=== PATIENT | female | born 1965 | race African-American/Black ===

== ENCOUNTER 2019-01-15 17:01 | Observation (INO) | payer OTHER, SELFPAY ==
[~2019-01-15 17:01] MED LIST: ISOVUE-370 76%-LOCM 1 ML ONE
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
[2019-01-15 17:51] LABS: #Basophils 0.1 thou/uL (0.0-0.2); #Eosinphils 0.1 thou/uL (0.0-0.7); #Lymphocytes 1.7 thou/uL (1.20-3.40); #Monocytes 0.3 thou/uL (0.11-0.59); %Basophils 1.4 % (0.0-1.0); %Eosinophils 1.8 % (0.0-10.0); %Lymphocytes 23.2 % (21.0-51.0); %Monocytes 4.6 % (0.0-10.0); Hemoglobin 8.6 g/dL (12.0-16.0); Mean Corpuscular HGB CONC 32.3 g/dL (32.0-36.0); Mean Corpuscular Volume 89.7 fL (78.0-98.0); Mean Platelet Volume 7.3 fL (7.4-10.4); Platelet Count 158 thou/uL (130-400); RBC Distribution Width 12.2 % (11.5-14.5); Red Blood Cell (RBC) Count 2.96 mill/uL (4.20-5.40); White Blood Cell (WBC) Count 7.2 thou/uL (4.8-10.8)
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
[2019-01-15 18:13] LABS: ALT (SGPT) 23 U/L (8-55); AST (SGOT) 45 U/L (5-34); Albumin 2.9 g/dL (3.5-5.0); Alkaline Phosphatase 27 U/L (40-150); Anion Gap 9 mmol/L (10-20); BUN (Urea Nitrogen) 10 mg/dL (9.8-20.1); Bilirubin, Total 0.2 mg/dL (0.2-1.2); Calc. Creatinine Clearance 0 mL/min (70-130); Carbon Dioxide 23 mmol/L (22-29); Chloride 107 mmol/L (98-107); Estimated GFR-MDRD 78; Globulin 1.8 g/dL (2.4-3.5); Glucose 179 mg/dL (70-105); Protein, Total 4.7 g/dL (6.0-8.3); Sodium 136 mmol/L (136-145)
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
[2019-01-15 18:15] LABS: Potassium 2.9 mmol/L (3.5-5.1)
[2019-01-15 19:16] LABS: Lactic Acid 1.7 mmol/L (0.5-2.2)
[2019-01-15] MEDS ORDERED: Dextrose 5% in Water 1,000 ML IV PRN (19:56)
[2019-01-15] MEDS ORDERED: Morphine 2 MG/ML SYRINGE SLOW IVP PRN (19:56)
[2019-01-15] MEDS ORDERED: Promethazine HCl 25 MG/ML VIAL IM PRN (19:56)
[2019-01-15] MEDS ORDERED: Dextrose 50% Abboject 50 ML SYRINGE SLOW IVP PRN (19:56)
[2019-01-15] MEDS ORDERED: hydrALAZINE 20 MG/ML VIAL SLOW IVP PRN (19:56)
[2019-01-15] MEDS ORDERED: Cyclobenzaprine 10 MG TAB PO PRN (20:01)
[2019-01-15] MEDS ORDERED: traMADol HCl 50 MG TAB PO PRN ×2 (20:01)
[2019-01-15] MEDS ORDERED: Ibuprofen 800 MG TAB PO SCH (20:15)
[2019-01-15] MEDS: Sodium Chloride 0.9% 1,000 ML IV SCH (21:09)
[2019-01-15] MEDS: Ondansetron PF 4 MG/2 ML Vial IVP PRN (21:09)
[2019-01-15] MEDS: Potassium Chloride 20 MEQ/100 ML PREMIX BAG IVPB SCH (21:10)
[2019-01-15] MEDS: Ibuprofen 800 MG TAB PO SCH (21:10)
[2019-01-15] MEDS: Famotidine 20 MG TAB PO SCH (21:10)
[2019-01-15 21:52] VITALS: BMI 20.9
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
[2019-01-15] MEDS: Acetaminophen 1,000 MG in Premix Bag 1 BAG IVPB SCH (23:00)
[2019-01-16] MEDS: Potassium Chloride 20 MEQ/100 ML PREMIX BAG IVPB SCH
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
[2019-01-16 05:28] LABS: #Monocytes 0.5 thou/uL (0.11-0.59); #Neutrophils 6.8 thou/uL (1.40-6.50); %Basophils 0.1 % (0.0-1.0); %Lymphocytes 12.3 % (21.0-51.0); %Monocytes 5.9 % (0.0-10.0); %Neutrophils 81.7 % (42.0-75.0); Hemoglobin 9.3 g/dL (12.0-16.0); Mean Corpuscular HGB CONC 32.7 g/dL (32.0-36.0); Mean Corpuscular Hemoglobin 29.7 pg (27.0-31.0); Mean Corpuscular Volume 90.8 fL (78.0-98.0); Mean Platelet Volume 7.7 fL (7.4-10.4); Platelet Count 175 thou/uL (130-400); RBC Distribution Width 12.3 % (11.5-14.5); Red Blood Cell (RBC) Count 3.13 mill/uL (4.20-5.40); White Blood Cell (WBC) Count 8.4 thou/uL (4.8-10.8)
[2019-01-16 05:43] LABS: Lactic Acid 1.6 mmol/L (0.5-2.2)
[2019-01-16] MEDS: Acetaminophen 1,000 MG in Premix Bag 1 BAG IVPB SCH (05:46)
[2019-01-16 05:54] LABS: Anion Gap 12 mmol/L (10-20); BUN (Urea Nitrogen) 9 mg/dL (9.8-20.1); CK (CPK) 649 U/L (29-168); Calc. Creatinine Clearance 79 mL/min (70-130); Calcium 8.8 mg/dL (7.8-10.44); Carbon Dioxide 23 mmol/L (22-29); Chloride 110 mmol/L (98-107); Estimated GFR-MDRD Greater than 90; Glucose 120 mg/dL (70-105); Magnesium 1.8 mg/dL (1.6-2.6); Phosphorus 3.7 mg/dL (2.3-4.7); Potassium 4.5 mmol/L (3.5-5.1); Sodium 140 mmol/L (136-145)
[2019-01-16] MEDS: Ibuprofen 800 MG TAB PO SCH ×3 (05:54→21:05)
[2019-01-16] MEDS: Sodium Chloride 0.9% 1,000 ML IV SCH ×2 (05:54→18:15)
[2019-01-16] MEDS: Famotidine 20 MG TAB PO SCH ×2 (08:33→21:05)
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
[2019-01-16] MEDS: Ondansetron PF 4 MG/2 ML Vial IVP PRN (12:47)
[2019-01-16] MEDS: Acetaminophen 500 MG TAB PO SCH ×2 (12:47→18:15)
[2019-01-17] MEDS: Sodium Chloride 0.9% 1,000 ML IV SCH ×2 (03:24→13:04)
[2019-01-17] MEDS: Acetaminophen 500 MG TAB PO SCH ×3 (05:49→11:51)
[2019-01-17] MEDS: Ibuprofen 800 MG TAB PO SCH ×2 (05:49→13:25)
[2019-01-17 07:18] LABS: Anion Gap 10 mmol/L (10-20); BUN (Urea Nitrogen) 7 mg/dL (9.8-20.1); CK (CPK) 726 U/L (29-168); Calc. Creatinine Clearance 87 mL/min (70-130); Calcium 7.9 mg/dL (7.8-10.44); Carbon Dioxide 20 mmol/L (22-29); Chloride 111 mmol/L (98-107); Estimated GFR-MDRD Greater than 90; Glucose 100 mg/dL (70-105); Magnesium 1.4 mg/dL (1.6-2.6); Phosphorus 2.4 mg/dL (2.3-4.7); Potassium 3.4 mmol/L (3.5-5.1); Sodium 138 mmol/L (136-145)
[2019-01-17] MEDS ORDERED: PHOS-NAK 1 PKT PACK PO SCH (07:45)
[2019-01-17] MEDS ORDERED: Magnesium 2 GM/50 ML 2 GM in Premix Bag 1 BAG IVPB SCH (08:00)
[2019-01-17] MEDS: Famotidine 20 MG TAB PO SCH (08:32)
[2019-01-17 15:52] VITALS: TEMP 98.8
[2019-01-17 16:03] VITALS: BP 152/88
== END 2019-01-17 16:55 | disposition home or self-care (01) ==
LOC: ERS 17:01 → SURG B 20:37
PROVIDERS: ADMIT Specialist; ATTEND Specialist
DX: S30.1XXA Contusion of abdominal wall, initial encounter (principal); S70.12XA Contusion of left thigh, initial encounter; S06.9X9A Unspecified intracranial injury with loss of consciousness of unspecified duration, initial encounter; G89.11 Acute pain due to trauma; E87.6 Hypokalemia; R74.8 Abnormal levels of other serum enzymes; V89.2XXA Person injured in unspecified motor-vehicle accident, traffic, initial encounter
CPT/HCPCS: 36415; 70450; 71045; 71260; 72125; 74177; 80048; 80053; 82550; 83605; 83735; 84100; 85025; 96361; 96365; 96366; 96375; 96376; G0378; G0390; J0131; J2270; J2405; J3475; J3480; Q9966